=== PATIENT | female | born 1975 | race Caucasian/White ===

== ENCOUNTER 2019-10-14 10:54 | Outpatient (CLI) | payer OTHER, SELFPAY ==
--- NOTE | ~2019-10-14 | US_ITS ---
EXAMINATION: US pelvic complete w TV DATE: 10/14/2019 11:30 INDICATION: Menorrhagia. Comparison:Ultrasound dated 08/13/2015 TECHNIQUE: Multiple transabdominal and endovaginal sonographic images of the pelvis performed. FINDINGS: The uterus measures 9.3 x 4.3 x 5.2 cm. The endometrial complex measures 8 mm. There are na bothian cysts. The right ovary measures 3.1 x 2.2 x 1.9 cm and the left ovary measures 2.1 x 0.9 x 1.5 cm. There are small right ovarian cysts, largest measuring 1.5 cm. There are small follicles in each ovary. There is no free fluid in the pelvis. There are no abnormal masses seen on either side. IMPRESSION: 1. Small right ovarian cysts, largest measuring 1.5 cm. Reviewed, dictated and finalized at location A.
[2019-10-14 11:09] LABS: Basophils Absolute Auto 0.06 K/mm3 (0.00-0.10); Basophils Percent Auto 0.9 % (0.0-1.0); Eosinophils Absolute Auto 0.15 K/mm3 (0.02-0.50); Eosinophils Percent Auto 2.1 % (1.0-6.0); Hematocrit 42.1 % (35.0-49.0); Hemoglobin 14.1 g/dL (12.0-15.0); Immature Granulocyte Absolute 0.03 K/mm3 (0.00-0.00); Immature Granulocyte Percent A 0.4 % (0.0-0.0); Lymphocytes Absolute Auto 2.96 K/mm3 (1.10-4.50); Lymphocytes Percent Auto 42.3 % (18.0-42.0); Mean Corpuscular HGB Conc 33.5 g/dL (32.0-36.0); Mean Corpuscular Hemoglobin 28.6 pg (27.0-31.0); Mean Corpuscular Volume 85.4 fL (78.0-102.0); Mean Platelet Volume 10.5 fl (9.2-11.8); Monocytes Absolute Auto 0.76 K/mm3 (0.10-0.90); Monocytes Percent Auto 10.9 % (2.0-11.0); Neutrophils Percent Auto 43.4 % (50.0-70.0); Platelet Count Result 233 K/mm3 (150-420); Red Blood Count 4.93 M/mm3 (4.20-5.40); Red Cell Distribution Width 12.2 % (11.6-14.4)
[2019-10-14 11:34] LABS: Thyroid Stimulating Hormone 2.26 uIU/mL (0.36-3.74)
[2019-10-14 11:36] LABS: Beta HCG Quantitative < 1.00 mIU/mL (0-6)
[2019-10-17 12:58] LABS: Prolactin 18.4 ng/mL (***)
== END 2019-10-14 10:55 | disposition home or self-care (01) ==
PROVIDERS: PCP Nurse Practitioner Family; Visit Provider Nurse Practitioner
DX: N92.0 Excessive and frequent menstruation with regular cycle (principal)
CPT/HCPCS: 36415; 76830; 76856; 84146; 84439; 84443; 84702; 85025

== ENCOUNTER 2019-12-20 15:23 | Emergency (ER) | payer OTHER, SELFPAY ==
--- NOTE | ~2019-12-20 | XR_ITS ---
XR forearm RT 2V 12/20/2019 16:35 INDICATION: Right arm pain PROCEDURE: 2 views right forearm COMPARISON: No prior studies for comparison. FINDINGS: Fracture, dislocation or subluxation is not identified. The soft tissues appear within norm al limits. No foreign bodies are identified. IMPRESSION: 1: NO ACUTE BONE OR JOINT ABNORMALITY IDENTIFIED. Reviewed, dictated and finalized at location A.
[2019-12-20 15:32] VITALS: BP 141/86; PULSE 84; RESP 16; TEMP 37.6; O2SAT 98
--- NOTE | 2019-12-20 15:36 | ED.UPPEXIN ---
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 Related Data Home Medications Medication Instructions Recorded Confirmed doxycycline monohydrate 50 mg PO BID 12/20/19 12/20/19 Allergies Allergy/AdvReac Type Severity Reaction Status Date / Time No Known Allergies Allergy Verified 12/20/19 16:29 Review of Systems Review of Systems: All systems reviewed & are unremarkable except as noted in HPI and below Constitutional: Constitutional: Reports no additional constitutional complaints Eyes: Eyes: Reports as per HPI ENT: Reports system reviewed and no additional complaints, except as documented Cardiovascular: Cardiovascular: Reports no additional cardiovascular complaints Respiratory: Respiratory: Reports no additional respiratory complaints Gastrointestinal: Gastrointestinal: Reports no additional gastrointestinal complaints Genitourinary: Genitourinary: Reports no additional female genitourinary complaints Musculoskeletal: Comments: R forearm pain Integumentary/Breasts: Skin/Breast: Reports system reviewed and no additional complaints, except as docu Neurologic: Reports system reviewed and no additional complaints, except as documented Psychiatric: Psychiatric: Reports no additional psychiatric complaints Endocrine: Endocrine: Reports no additional endocrine complaints Hematologic/Lymphatic: Hematologic/Lymphatic: Reports no additional hematologic/lymphatic complaints Allergic/Immunologic: Allergic/Immunologic: Reports no additional allergic/immunologic complaints Exam Const: General: healthy appearing, no acute distress and alert Orientation/consciousness: patient oriented x3 HENMT: Head: normal to inspection Chest: Chest palpation & inspection: normal inspection of the chest Resp: Effort & Inspection: normal respiratory effort Auscultation: clear to auscultation bilaterally Cardio: Rate: regular rate Rhythm: regular rhythm Extrem: Other: R mid forearm TTP w/ mild ecchymosis Psych: Mental Status: mental status grossly normal Affect: normal affect Attitude: cooperative Course Course Emergency Course: X-rays negative. D/C home w/ OTC pain meds Vital Signs Vital signs: Vital Signs Temperature 99.7 F H 12/20/19 15:32 Pulse Rate 84 12/20/19 15:32 Respiratory Rate 16 12/20/19 15:32 Blood Pressure 141/86 H 12/20/19 15:32 Pulse Oximetry 98 12/20/19 15:32 Temperature 99.7 F H 12/20/19 15:32 Pulse Rate 84 12/20/19 15:32 Respiratory Rate 16 12/20/19 15:32 Blood Pressure 141/86 H 12/20/19 15:32 Pulse Oximetry 98 12/20/19 15:32 MDM - Extremity Injury (Upper) Medical Records Attestation: I reviewed the patient's medical records. Critical Care Time Critical Care Time Critical Care Time: No Discharge Plan Discharge Clinical Impression: Contusion of forearm, right Patient Disposition: Home, Self-Care Condition: Improved Instructions: Antibiotic Form, Contusion in Adults (ED) Prescriptions: No Action doxycycline monohydrate 50 mg capsule 50 mg PO BID RF: 0 Follow-up/Referrals: Geetha,Destiny Brady REHAB MANAGER-BC [Primary Care Provider] - Time of Disposition: 16:45
== END 2019-12-20 17:00 | disposition home or self-care (01) ==
PROVIDERS: Emergency Provider Family Medicine; PCP Nurse Practitioner Family
DX: S50.11XA Contusion of right forearm, initial encounter (principal); W22.8XXA Striking against or struck by other objects, initial encounter
CPT/HCPCS: 73090; 99283

== ENCOUNTER 2020-03-05 10:46 | Outpatient (CLI) | payer OTHER, SELFPAY ==
--- NOTE | ~2020-03-05 | MMUS_ITS ---
EXAMINATION: MM diagnostic masha BI w marleny, US breast LT limited HISTORY: Palpable left breast abnormality TECHNIQUE: Additional 3-D tomosynthesis images of the breasts were performed and synthetic 2-D images were generated. CAD analysis was submitted and interpreted. High resolution Limited left breast ultr asound was performed. COMPARISON: Comparison to multiple prior studies sequentially, with oldest reviewed study dated 3/. BREAST PARENCHYMAL COMPOSITION: Breast composed of scattered areas of fibroglandular density. FINDINGS: MAMMOGRAPHIC FINDINGS: There are no suspicious masses, calcifications or architectural distortion in either breast to sugges t malignancy. ULTRASOUND: There are mildly prominent ducts near the areola. At 6:00 near the nipple there is a 3 mm cyst. No bazzi spicious masses to suggest malignancy. IMPRESSION: 1. No evidence for malignancy in the left breast. 2. Routine yearly screening mammogram and regular clinical breast examination are recommended. BI-RADS Category 2: Benign finding(s). Reviewed, dictated and finalized at location A. IMPRESSION: 1. No evidence for malignancy in the left breast. 2. Routine yearly screening mammogram and regular clinical breast examination a re recommended. BI-RADS Category 2: Benign finding(s).
== END 2020-03-05 10:47 | disposition home or self-care (01) ==
PROVIDERS: PCP Nurse Practitioner Family; Visit Provider Nurse Practitioner Family
DX: R92.8 Other abnormal and inconclusive findings on diagnostic imaging of breast (principal)
CPT/HCPCS: 76642; 77062; 77066; G0279

== ENCOUNTER 2022-07-05 12:23 | Emergency (ER) | payer OTHER, SELFPAY ==
--- NOTE | 2022-07-05 12:31 | ED.URI ---
HPI - URI/Sore Throat General Chief Complaint: Upper Respiratory Infection Stated Complaint: wants covid test Time Seen by Provider: 07/05/22 12:32 Source: patient, RN notes reviewed and old records reviewed Mode of arrival: ambulatory Limitations: no limitations History of Present Illness HPI Narrative: 47 old female presents to express care with complaints of runny nose and sinus congestion for the past 3 days. Patient reports that there had been COVID exposure at work but she was not directly around person. Patient reports no fevers, chills or sweats,denies any body aches or sore throat. Patient states she just has cold symptoms and has been taking some Mucinex DM for her symptoms. Patient reports that she has been COVID vaccinated and has had flu shot. Work place is concerned with her symptoms and would like to have COVID test done. MD elicited complaint: cough, rhinorrhea and nasal congestion Onset (ago): day(s) (3 days) Description of mucous: clear Treatments prior to arrival: other (Mucinex DM) Related Data Home Medications Medication Instructions Recorded Confirmed clonazepam 0.5 mg tablet 0.5 mg PO DAILY PRN anxiety 06/30/22 07/05/22 norethindrone (contraceptive) 0.35 0.35 mg PO DAILY 06/30/22 07/05/22 mg tablet phentermine 37.5 mg tablet 37.5 mg PO DAILY 06/30/22 07/05/22 Allergies Allergy/AdvReac Type Severity Reaction Status Date / Time No Known Allergies Allergy Verified 07/05/22 12:40 Review of Systems Review of Systems: CONSTITUTIONAL: Denies malaise, chills, sweats, or fever. EYES: Denies visual changes, redness, or discharge. ENT: Reports rhinorrhea, congestion, sinus pain,no otalgia, denies sore throat. CARDIOVASCULAR: Denies chest pain, palpitations, or edema. RESPIRATORY: Reports occasional cough.? Denies dyspnea. GASTROINTESTINAL: Denies abdominal pain, nausea, vomiting, diarrhea SKIN: Denies rash or itching. MUSCULOSKELETAL: Denies myalgia. NEUROLOGIC: Denies headache. All systems reviewed & are unremarkable except as noted in HPI and below PMFSH Past Medical History Medical History (Updated 07/06/22 @ 08:44 by Latosha Carmona NP) Anxiety and depression Surgical History Surgical History History of tubal ligation Family History Family History Father Depression Alcoholism Mother Breast cancer Alcoholism Sibling Hypertension Depression Grandparent Alcoholism Ovarian cancer Social History Social History Smoking status: Current every day smoker Tobacco type: e-cigarettes/vaping Alcohol intake: current Alcohol use details: maybe every 6 months Substance use: never Substance use type: does not use Lack of Transportation: No Lack of Food: Never True Current Housing: I Have Housing Concerned About Future Housing: No Difficulty Paying Gas/Electric Bills: No Difficulty Paying for Meds: No Currently Unemployed: No Education: Trade/Vocational Certificate Difficulty w/ Childcare or Family Care: No Living arrangements: with family Occupation/Education: occupation Gender identity (if verbalized by the patient): Female Sexual Orientation (if Verbalized by the Patient): Straight or Heterosexual Spiritual care concerns: No Agree to blood products: Yes Comments At time of signature, agree with nursing past medical, surgical, social and family history. There is no relevant family history pertinent to the presenting complaint Exam Narrative: GENERAL: Well-appearing, well-nourished, and in no acute distress. HEAD: Normocephalic EYES: PERRLA, conjunctivae clear ENT: Nares clear, turbinates edematous and erythematous, clear discharge. Mucous membranes moist. TM pearly covarrubias with dull light reflex bilaterally; no tragal ten
[2022-07-05 12:32] VITALS: BP 114/82; PULSE 93; RESP 16; TEMP 36.6; O2SAT 100
== END 2022-07-05 13:10 | disposition home or self-care (01) ==
PROVIDERS: Emergency Provider Registered Nurse; PCP Family Medicine
DX: J06.9 Acute upper respiratory infection, unspecified (principal); Z20.822 Contact with and (suspected) exposure to COVID-19; F17.290 Nicotine dependence, other tobacco product, uncomplicated; F41.9 Anxiety disorder, unspecified
CPT/HCPCS: 87426; 99213; C9803; G0463

== ENCOUNTER 2022-07-24 12:27 | Outpatient (CLI) | payer OTHER, SELFPAY ==
--- NOTE | ~2022-07-24 | US_ITS ---
EXAMINATION: US arterial ankle brachial ind DATE: 07/24/2022 14:28 INDICATION: Peripheral vascular disease TECHNIQUE: Segmental pressures and plethysmographic and Doppler waveforms of the brachial and lower e xtremity arteries were obtained. COMPARISON: None. FINDINGS: Right and left brachial artery pressures of 91 mm Hg and 91 mm Hg, respectively, are concordant (norm al difference <= 30 mmHg). The right ankle-brachial index (ILEANA) is 1.30 (normal >= 0.9-1.0). The right great toe-brachial index (TBI) is 0.42 (normal >= 0.65). Arterial Doppler waveforms are biphasic with brisk systolic upstrokes at both right posterior tibial and dorsalis pedis arteries. The left ILEANA is 1.43. The left TBI is 0.63. Arterial Doppler waveforms are biphasic with brisk systol ic upstrokes at both left posterior tibial and dorsalis pedis arteries. IMPRESSION: 1. Mild arterial occlusive disease to bilateral lower limbs with normal ABIs but mild to moderately d ecreased right and minimally decreased left TBIs. Reviewed, dictated and finalized at location A. RANS' COORDINATOR IMPRESSION: 1. Mild arterial occlusive disease to bilateral lower limbs with normal ABIs bu t mild to moderately decreased right and minimally decreased left TBIs.
--- NOTE | ~2022-07-24 | US_ITS ---
EXAMINATION: US_VDOPREFBI_US DATE: 07/24/2022 14:28 INDICATION: Lower limb pain. Reflux. TECHNIQUE: Grayscale ultrasound images without and with compression and Doppler ultrasound images of the bilateral lower extremity veins were obtained. COMPARISON: None. FINDINGS: The visualized portions of right common femoral vein, profunda (deep) femoral vein, femoral vein, pop liteal vein, peroneal veins, posterior tibial veins, and greater saphenous vein outflow are patent. R ight greater saphenous vein measures 5 mm in the upper thigh and 5 mm in the lower thigh and 2 mm in the calf. There is reflux in right greater saphenous vein for 1.0 seconds in the lower thigh. Right s mall saphenous vein measures 4 mm in the upper calf and 4 mm in the lower calf. There is no significa nt reflux in the small saphenous vein. The visualized portions of left common femoral vein, profunda femoral vein, femoral vein, popliteal v ein, peroneal veins, posterior tibial veins, and greater saphenous vein outflow are patent. Lesser sa phenous vein measures 6 mm in the upper thigh, 4 mm in the lower thigh, and 3 mm in the calf. There i s reflux in left greater saphenous vein for 1.3 seconds in the lower thigh. Left small saphenous vein measures 4 mm in the upper calf and 3 mm in the lower calf. There is reflux in left small saphenous vein for 4.2 seconds. IMPRESSION: 1. No deep venous thrombosis. 2. Reflux in the bilateral greater saphenous veins and left small saphenous vein. Reviewed, dictated and finalized at location A. NING DEVELOPMENT SPECIALIST IMPRESSION: 1. No deep venous thrombosis. 2. Reflux in the bilateral greater saphenous veins and left small saphenous vei n.
== END 2022-07-24 12:28 | disposition home or self-care (01) ==
LOC: ANHIMG 12:32
PROVIDERS: PCP Family Medicine; Visit Provider Orthopaedic Surgery
DX: I87.2 Venous insufficiency (chronic) (peripheral) (principal); I73.9 Peripheral vascular disease, unspecified
CPT/HCPCS: 93922; 93970

== ENCOUNTER 2022-11-08 08:19 | Outpatient (CLI) | payer BC, SELFPAY ==
[2022-11-08 17:38] LABS: Basophils Absolute Auto 0.1 K/mm3 (0.0-0.1); Basophils Percent Auto 0.9 % (0.2-1.2); Eosinophils Absolute Auto 0.2 K/mm3 (0-0.3); Eosinophils Percent Auto 2.6 % (0-4.4); Hemoglobin 14.2 g/dL (12.0-15.0); Immature Granulocyte Absolute 0.01 K/mm3 (0.00-0.031); Immature Granulocyte Percent A 0.2 % (0-0.5); Lymphocytes Absolute Auto 1.84 K/mm3 (0.9-3.2); Lymphocytes Percent Auto 32.5 % (18.3-44.2); Mean Corpuscular Hemoglobin 29.2 pg (26-34); Mean Corpuscular Volume 88.3 fl (80-100); Mean Platelet Volume 11.3 fl (7.4-10.4); Monocytes Absolute Auto 0.6 K/mm3 (0.1-0.6); Monocytes Percent Auto 11.3 % (2.6-8.5); Neutrophils Percent Auto 52.5 % (45.5-73.1); Platelet Count Result 204 k/mm3 (150-375); Red Blood Count 4.87 M/mm3 (4.2-5.4); Red Cell Distribution Width 12.6 % (11.5-14.5); White Blood Count 5.7 K/mm3 (4.5-10.0)
[2022-11-08 20:44] LABS: LDL Cholesterol Direct 77 mg/dL
[2022-11-08 21:25] LABS: Anion Gap 8 mmol/L (8-16); Blood Urea Nitrogen 20 mg/dL (7-17); Carbon Dioxide 26 mmol/L (22-30); Chloride 105 mmol/L (98-107); Cholesterol 161 mg/dL (0-200); Estimated Glomerular Filt Rate > 60; Glucose 83 mg/dL (65-110); HDL Direct 60 mg/dL; Potassium 4.5 mmol/L (3.4-5.0); Sodium 139 mmol/L (137-145); Triglycerides 43 mg/dL (<150)
[2022-11-08 21:32] LABS: Vitamin D 25 Hydroxy 34.7 ng/mL
[2022-11-12 05:21] LABS: FSH 47.7 mIU/mL (***); Prolactin 7.2 ng/mL (***)
== END 2022-11-08 08:20 | disposition home or self-care (01) ==
LOC: ANHGOSHLAB 08:27
PROVIDERS: PCP Family Medicine; Visit Provider Nurse Practitioner Family
DX: N92.0 Excessive and frequent menstruation with regular cycle (principal); I73.9 Peripheral vascular disease, unspecified; G57.72 Causalgia of left lower limb
CPT/HCPCS: 36415; 80048; 80061; 82306; 83001; 84146; 84443; 85025

== ENCOUNTER 2023-02-05 14:21 | Outpatient (CLI) | payer BC, SELFPAY ==
--- NOTE | ~2023-02-05 | XR_ITS ---
EXAMINATION: XR foot RT min 3V DATE: 02/05/2023 14:26 INDICATION: Dorsal right foot pain. TECHNIQUE: 4 views of right foot were obtained. COMPARISON: None. FINDINGS: There is mild hallux valgus. No fracture. There is mild osteoarthritis of first metatarsoph alangeal joint. IMPRESSION: 1. Mild osteoarthritis of first metatarsophalangeal joint. 2. Mild hallux valgus. Reviewed, dictated and finalized at location E.
== END 2023-02-05 14:22 ==
LOC: GOSHIMG 14:23
PROVIDERS: PCP Family Medicine; Visit Provider Nurse Practitioner Family
DX: M19.071 Primary osteoarthritis, right ankle and foot (principal); M20.11 Hallux valgus (acquired), right foot
CPT/HCPCS: 73630

== ENCOUNTER 2023-02-15 12:46 | Outpatient (CLI) | payer BC, SELFPAY ==
--- NOTE | ~2023-02-15 | US_ITS ---
Pelvic ultrasound. Clinical History: Menorrhagia Technique: Realtime transabdominal and transvaginal scanning of the pelvis was performed. Color flow Doppler and Doppler spectral analysis were performed. Findings: The uterus is anteverted, and measures 7.1 x 4.0 x 4.1. The endometrial stripe has a thick ness of 9 mm. No focal mass is identified. The right ovary is not visualized. No significant right ovarian or adnexal mass is seen. The left ovary measures 3.2 x 2.4 x 2.5 cm. Left ovarian cyst measures 2.7 cm in diameter. There is no evidence of free fluid in the cul de sac. Impression: 2.7 cm left ovarian cyst. Right ovary not visualized. Reviewed, dictated and finalized at [facility]. Impression: 2.7 cm left ovarian cyst. Right ovary not visualized.
== END 2023-02-15 12:47 ==
LOC: GOSHIMG 12:48
PROVIDERS: PCP Family Medicine; Visit Provider Nurse Practitioner
DX: N92.0 Excessive and frequent menstruation with regular cycle (principal); N83.202 Unspecified ovarian cyst, left side
CPT/HCPCS: 76830; 76856

== ENCOUNTER 2023-02-15 13:09 | Outpatient (CLI) | payer BC, SELFPAY ==
[2023-02-15 18:42] LABS: Hematocrit 42.9 % (37.0-47.0); Mean Corpuscular HGB Conc 32.6 g/dl (32-36); Mean Corpuscular Hemoglobin 29.3 pg (26-34); Mean Corpuscular Volume 89.7 fl (80-100); Mean Platelet Volume 11.2 fl (7.4-10.4); Platelet Count Result 244 k/mm3 (150-375); Red Blood Count 4.78 M/mm3 (4.2-5.4); Red Cell Distribution Width 12.1 % (11.5-14.5); White Blood Count 6.2 K/mm3 (4.5-10.0)
[2023-02-15 19:23] LABS: Free T4 Free Thyroxine 1.11 ng/mL (0.78-2.19)
== END 2023-02-15 13:10 | disposition home or self-care (01) ==
LOC: ANHGOSHLAB 13:11
PROVIDERS: PCP Family Medicine; Visit Provider Nurse Practitioner
DX: N92.0 Excessive and frequent menstruation with regular cycle (principal)
CPT/HCPCS: 36415; 82607; 83036; 84439; 84443; 85027

== ENCOUNTER 2023-03-12 01:10 | Day surgery (SDC) | payer BC, MEDICAID, SELFPAY ==
--- NOTE | 2023-03-05 15:24 | PC.NURSE ---
Report to the Outpatient Waiting Room, entrance under the green pavilion located off [facility], at time _0915_ on date __03/12/23_. Planned Procedure Time: __1115 . Time changes happen often and if your time is changed the preop area will call you the afternoon before. - You and your visitor will be asked to self-screen and do not enter if you have any COVID symptoms. - A mask is optional within the hospital at this time. Patients may have clear liquids (water, carbonated beverages, clear teas, apple juice) until 3 hours prior to surgery with a maximum of 20 ounces. - No food from midnight until time of surgery - Infants may have breast milk until 4 hours before surgery, formula 6 hours prior to surgery. - Children will be allowed to drink immediately following surgery. If applicable, please bring a bottle or sippy cup to assist with drinking. Juice, water, soda, and popsicles are readily available. For infants on formula, please bring formula the day of surgery. Pacifiers are allowed. Take the following medications with a SIP of water the morning of surgery: CLONAZEPAM DO NOT STOP ANY OF YOUR OTHER PRESCRIPTION MEDICATIONS PRIOR TO SURGERY ?EXCEPT THE FOLLOWING Medications to discontinue per physician NONE Date to take last dose Please no make-up, nail nepali, hairspray, perfume, deodorant, or body powder the day of surgery. No jewelry (including any body piercings) or valuables the day of surgery, leave them at home. Please take a shower or bath the night before, or the morning of, surgery with an antibacterial soap. Wear comfortable, loose fitting clothing. Children are encouraged to wear pajamas. - Jewelry must be removed prior to entering the operating room. Rings and piercings that are not removed may be cut off. - The hospital will not accept responsibility for valuables. - Please leave all valuables, including medications, at home the day of surgery. If you are going home after surgery, a licensed water taxi driver must drive you home. - NO public transportation without another adult if you receive anesthesia. - We recommend that an adult stay with you for 24 hours following discharge. - We also recommend that you do not drive, make important decision, drink alcoholic beverages, or take any drugs that were not prescribed by your health care provider for at least 24 hours after your discharge time. For Pediatric surgeries, we recommend two adults accompany the child home. Follow any additional instructions given to you from your surgeon. If you or anyone in your household have experienced Covid symptoms in the past week, please notify your surgeon or the nurse liaison at the phone number below for possible testing. Telephone instructions given to KAMERONFF__and asked if any additional questions and then verbalized understanding. Patient advised to call surgeon office or pre surgery nurse liaison [phone] if any additional questions.
--- NOTE | 2023-03-12 07:17 | WPDANESEPPF ---
Anes - Initial Pre Proc Eval Procedure: Operation Date: 03/12/23 11:15 Proposed Procedures p Hysteroscopy Dilation and Curettage - Hermelinda Reveles MD Date/Time: 03/12/23 07:17 Surgeon: Hermelinda Reveles MD Pre Op Diagnosis: menorrhagia Patient Data Age: 48 Gender: F Height: Weight: Allergies Allergy/AdvReac Type Severity Reaction Status Date / Time No Known Allergies Allergy Verified 03/12/23 10:00 Home Medications Medication Instructions Recorded Confirmed Type clonazepam 0.5 mg tablet 0.5 mg PO DAILY PRN anxiety 06/30/22 03/12/23 History Patient hx anesthesia problems: none Family hx anesthesia problems: none Results Review: All pre-operative results and documents have been reviewed as part of the pre-operative evaluation. [facility] [place] Past Medical History Medical History (Updated 03/12/23 @ 10:04 by Oliverio George DO) Anxiety and depression (normal spontaneous vaginal delivery) X3 Venous stasis dermatitis of left lower extremity Surgical History Surgical History (Updated 03/12/23 @ 07:44 by Hermelinda Reveles MD) History of hysteroscopy 2020 with polyps History of tubal ligation Family History Family History Father Depression Alcoholism Mother Breast cancer Alcoholism Sibling Hypertension Depression Grandparent Alcoholism Ovarian cancer Social History Social History Smoking packs per day: 0.45 Smoking cigarettes per day: 9.0 Years smoked: 30 Smoking pack-years: 13.50 Smoking status: Current every day smoker Tobacco type: cigarettes and e-cigarettes/vaping Additional smoking assessment comments: VAPING FOR 3 YEARS, AFTER QUITTING CIGARETTES Alcohol intake: current Alcohol use details: RARELY Substance use: never Substance use type: does not use Lack of Transportation: No Lack of Food: Never True Current Housing: I Have Housing Concerned About Future Housing: No Difficulty Paying Gas/Electric Bills: No Difficulty Paying for Meds: No Currently Unemployed: No Education: Trade/Vocational Certificate Difficulty w/ Childcare or Family Care: No Living arrangements: with family Occupation/Education: occupation Gender identity (if verbalized by the patient): Female Sexual Orientation (if Verbalized by the Patient): Straight or Heterosexual Spiritual care concerns: No Agree to blood products: Yes Anes - Eval Final PreProcedure Day of Procedure 03/12/23 07:17 Patient weight: normal Heart: regular rate and rhythm Lungs: clear to auscultation and normal air movement Airway: Mallampati scale class II Neurological: alert and oriented Last oral intake: >/= 8 hours ASA classification: II Emergent: no Anesthetic plan: proceed Anesthesia type and monitoring: general GIVS and standard monitoring Results Review: All pre-operative results and documents have been reviewed as part of the pre-operative evaluation. Informed Consent: The patient's anesthetic plan and its attendant risks and benefits were discussed with the patient/family/POA. Questions were solicited and answers provided to the satisfaction of the patient/family/POA.
--- NOTE | 2023-03-12 07:41 | WPDHPUPDATE1 ---
History and Physical Update Update Date/Time: 03/12/23 07:41 History and Physical has been reviewed, including an updated exam of the patient. There are NO changes in the patient's condition. Risks, benefits, and alternatives have been discussed and questions answered. Patient agrees to proceed with procedure.
--- NOTE | 2023-03-12 07:41 | PM.HPGS ---
History of Present Illness History of Present Illness Consent: Risks, benefits, and alternatives have been discussed and questions answered. Patient agrees to proceed with procedure. Chief complaint: menorrhagia Narrative: Nyla Hay is a 48 year old female with irregular heavy cycles. Pelvic ultrasound was normal. It was recommended to further undergo D&C hysteroscopy for evaluation. Risks of infection, bleeding, perforation, and possible pathology are reviewed. Patient voices understanding and agrees to proceed. Review of Systems Review of Systems: not repeated day of surgery; patient states no changes in status PMFSH Past Medical History Medical History (Updated 03/12/23 @ 07:44 by Hermelinda Reveles MD) Anxiety and depression (normal spontaneous vaginal delivery) X3 Peripheral arterial disease Patient saw vascular surgeon and stated this was not present Venous stasis dermatitis of left lower extremity Surgical History Surgical History (Updated 03/12/23 @ 07:44 by Hermelinda Reveles MD) History of hysteroscopy 2020 with polyps History of tubal ligation Family History Family History Father Depression Alcoholism Mother Breast cancer Alcoholism Sibling Hypertension Depression Grandparent Alcoholism Ovarian cancer Social History Social History Smoking packs per day: 0.45 Smoking cigarettes per day: 9.0 Years smoked: 30 Smoking pack-years: 13.50 Smoking status: Current every day smoker Tobacco type: cigarettes and e-cigarettes/vaping Additional smoking assessment comments: VAPING FOR 3 YEARS, AFTER QUITTING CIGARETTES Alcohol intake: current Alcohol use details: RARELY Substance use: never Substance use type: does not use Lack of Transportation: No Lack of Food: Never True Current Housing: I Have Housing Concerned About Future Housing: No Difficulty Paying Gas/Electric Bills: No Difficulty Paying for Meds: No Currently Unemployed: No Education: Trade/Vocational Certificate Difficulty w/ Childcare or Family Care: No Living arrangements: with family Occupation/Education: occupation Gender identity (if verbalized by the patient): Female Sexual Orientation (if Verbalized by the Patient): Straight or Heterosexual Spiritual care concerns: No Agree to blood products: Yes Meds Home Medications and Allergies Home Medications Medication Instructions Recorded Confirmed Type clonazepam 0.5 mg tablet 0.5 mg PO DAILY PRN anxiety 06/30/22 07/11/22 History Allergies Allergy/AdvReac Type Severity Reaction Status Date / Time No Known Allergies Allergy Verified 03/05/23 15:14 Exam Const: General: healthy appearing and alert Orientation/consciousness: patient oriented x3 Resp: Effort & Inspection: normal respiratory effort GI: GI Palp: Yes Soft to palpation, No Tenderness to palpation present (GI) and No Palpable mass present : External Female Exam: normal external appearance Speculum Exam - Vagina: normal appearance of the vagina and normal vaginal discharge Speculum Exam - Cervix: normal appearance of the cervix Bimanual exam- vagina & uterus: uterine size normal and consistency normal Bimanual Exam- Adnexa, other: normal adnexae and No adnexal tenderness Neuro: General: patient oriented x3 Assessment and Plan Assessment and plan (1) Menorrhagia: Code(s): N92.0 - Excessive and frequent menstruation with regular cycle Status: Acute Assessment and Plan: Plan to proceed with D&C hysteroscopy
[2023-03-12] MEDS: LACTATED RINGERS 1,000 ML 30 ML IV CONT (09:45)
[2023-03-12 09:53] VITALS: BMI 28.3
[2023-03-12] MEDS: ACETAMINOPHEN 500 MG TABLET 1000 MG PO (09:53)
[2023-03-12 09:55] VITALS: BP 103/80; PULSE 90; RESP 16; TEMP 36.4; O2SAT 100
[2023-03-12 11:39] VITALS: BP 101/57; PULSE 76; RESP 16; O2SAT 100
--- NOTE | 2023-03-12 11:41 | W.PM.PROC2 ---
Procedure Note - Detailed Date of Procedure 03/12/23 Pre-op Diagnosis menorrhagia Post-op Diagnosis Same Procedure Performed D&C hysteroscopy with resection of polyp Surgeon Hermelinda Reveles MD Anesthesia MAC Findings Uterus sounds to 7cm with a polyp arising from the right sidewall. Remainder of the endometrium appears atrophic. Description of Procedure The patient is taken to the operating room and placed under anesthesia in the dorsal lithotomy position. She was prepped and draped in usual sterile fashion. [place]ford speculum was placed in the vagina and the cervix grasped on the anterior lip with a tenaculum. The uterus is sounded to 7cm. The diagnostic hysteroscope was placed and with the above-stated findings the Aveeta resection device is opened and placed. The polyp was removed in its entirety under direct visualization. Instruments are removed from the uterus and the sharp 00 curette is used to curette the endometrium until a good uterine cry was noted in all areas. Minimal material was obtained consistent with the atrophic appearance. Instruments are removed. Sponge, needle, and instrument counts are correct per the OR staff. Patient was awakened from anesthesia and taken to recovery in stable condition. Estimated Blood Loss 5 Drains No Packing No Pathology Yes (Endometrial curettings and shavings) Complications No immediate complications Condition Stable Disposition PACU
[2023-03-12 12:00] VITALS: BP 105/70; PULSE 94; RESP 16; O2SAT 98
[2023-03-12 12:30] VITALS: BP 107/67; PULSE 64; RESP 16
== END 2023-03-12 13:00 | disposition home or self-care (01) ==
PROVIDERS: PCP Family Medicine; Visit Provider Obstetrics & Gynecology Gynecology
PROC: 0U5B8ZZ Destruction of Endometrium, Via Natural or Artificial Opening Endoscopic (ICD-10-PCS; CPT 58563; principal; 2023-03-12 11:15)
DX: N92.0 Excessive and frequent menstruation with regular cycle (principal); N84.0 Polyp of corpus uteri; F41.8 Other specified anxiety disorders; F17.290 Nicotine dependence, other tobacco product, uncomplicated
CPT/HCPCS: 58558; 88305; A9270; J2250; J3010; J7120

== ENCOUNTER 2023-04-06 15:30 | Outpatient (CLI) | payer BC, MEDICAID, SELFPAY ==
[2023-04-10 02:01] LABS: CA-125 8 U/mL (<35)
[2023-05-02 13:44] LABS: Result NEGATIVE
== END 2023-04-06 15:31 | disposition home or self-care (01) ==
LOC: ANHGOSHLAB 15:31
PROVIDERS: PCP Family Medicine; Visit Provider Nurse Practitioner Family
DX: R53.83 Other fatigue (principal); Z84.81 Family history of carrier of genetic disease; M25.50 Pain in unspecified joint; Z80.41 Family history of malignant neoplasm of ovary
CPT/HCPCS: 36415; 81162; 86038; 86304

== ENCOUNTER 2024-02-14 07:03 | Outpatient (CLI) | payer OTHER, SELFPAY ==
--- NOTE | ~2024-02-14 | MR_ITS ---
EXAMINATION: MR foot LT wo con DATE: 02/14/2024 08:53 INDICATION: Pain and paresthesias at the left foot TECHNIQUE: Magnetic resonance imaging (MRI) of the left fore/mid foot was performed without intraveno us contrast. Sequences included sagittal T1-weighted FSE, sagittal fluid sensitive FSE STIR, coronal PD-weighted FS FSE, coronal T1-weighted FSE, axial PD-weighted FS FSE, and axial PD-weighted FSE. COMPARISON: Left foot radiographs dated 07/11/2022 FINDINGS: Bone alignment is normal. Mild osteoarthritis at the first metatarsophalangeal joint with mild subart icular cystlike and edema-like signal changes at the head of the first metatarsal predominantly along its articulation with the sesamoids. Otherwise normal bone marrow signal with no reactive edema, fra cture or pathologic marrow replacing process. Remaining joint spaces are normal. No joint effusions, Vanessa synovitis or other abnormal fluid collections. The visualized portions of the flexor and extenso r tendons and intrinsic musculature of the foot are normal. The Lisfranc ligament complex as well as the collateral ligament complex at the metatarsophalangeal and interphalangeal joints are normal. IMPRESSION: 1. 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 Otherwise unremarkable MRI of the left mid and forefoot. Reviewed, dictated and finalized at location A. IMPRESSION: 1. 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 Otherwise u nremarkable MRI of the left mid and forefoot.
== END 2024-02-14 07:04 | disposition home or self-care (01) ==
PROVIDERS: PCP Family Medicine
DX: M79.672 Pain in left foot (principal); M19.072 Primary osteoarthritis, left ankle and foot
CPT/HCPCS: 73718

== ENCOUNTER 2024-07-14 11:47 | Outpatient (CLI) | payer OTHER, SELFPAY ==
--- NOTE | ~2024-07-14 | XR_ITS ---
EXAM: XR elbow RT min 3V DATE: 07/14/2024 12:07 HISTORY: W18.00XA - Striking against unspecified object with subse... . COMPARISON: X-ray forearm 12/20/2019. FINDINGS: Normal mineralization. No fracture or dislocation. No lytic or blastic lesion. Joint space s are maintained. No erosion or periosteal change. Soft tissues within normal limits. IMPRESSION: No acute osseous finding in the right elbow. Reviewed, dictated and finalized at location K. PEDIATRIC ICU
--- NOTE | ~2024-07-14 | XR_ITS ---
HISTORY: W18.00XA - Striking against unspecified object with subse... COMPARISON: None TECHNIQUE: 3 views of the right knee were performed FINDINGS: No acute or subacute fracture. Medial tibiofemoral joint space narrowing is identified. No suprapatellar joint effusion is identified. The infrapatellar joint space is clear. IMPRESSION: Trace degenerative disease, without fracture or dislocation. Reviewed, dictated and finalized at location A. [employer]
== END 2024-07-14 11:48 | disposition home or self-care (01) ==
LOC: GOSHIMG 11:49
PROVIDERS: PCP Nurse Practitioner Family; Visit Provider Nurse Practitioner Family
DX: M25.561 Pain in right knee (principal); M25.521 Pain in right elbow; W18.00XA Striking against unspecified object with subsequent fall, initial encounter
CPT/HCPCS: 73080; 73562

== ENCOUNTER 2024-10-24 13:28 | Outpatient (CLI) | payer OTHER, MEDICAID, SELFPAY | END 2024-10-24 13:29 | disposition home or self-care (01) | LOC: GOSHIMG 13:30 | PROVIDERS: PCP Nurse Practitioner Family; Visit Provider Nurse Practitioner Family | DX: M25.562 Pain in left knee (principal) | CPT/HCPCS: 73562 ==

== ENCOUNTER 2024-12-04 12:30 | Outpatient (RCR) | payer OTHER, SELFPAY ==
--- NOTE | 2024-11-10 14:01 | OPREHPOC ---
Outpatient Therapy Plan of Care This is a Multidisciplinary Plan of Care that may contain components documented by all disciplines (PT, OT, and ST.) PT Problem 1 PT Problem #1 Knowledge Deficit PT Goal 1 Goal / Goal Update 1. Patient to demonstrate independence with HEP for improved self-reliance of symptom management. 2. Patient to decrease subjective reports of pain to <2/10 for improved ADL tolerance. Target Visit 8 PT Problem 2 PT Problem #2 Impaired Range of Motion PT Goal 1 Goal / Goal Update 1. Patient will demonstrate an increase in hamstring flexibility, improving passive knee extension in the 90/90 position from to within -20 ? of full extension to allow for improved sitting posture and reduced strain during gait. Target Visit 8 PT Problem 3 PT Problem #3 Impaired Strength PT Goal 1 Goal / Goal Update 1. Patient to demonstrate L knee strength >= 5/5 for improved functional stability required for ADLs. Target Visit 8 PT Problem 4 PT Problem #4 Impaired Functional Mobility PT Goal 1 Goal / Goal Update 1. Patient to improve gait mechanics and stair negotiation to no noted deficit and reciprocal pattern for improved community navigation. 2. Patient to improve distance ambulated during 2 MWT from to 500 ft to demonstrate an improvement in gait speed. Target Visit 8
--- NOTE | 2024-11-10 14:01 | PTOPEVAL1 ---
Assessment and note entered by Sidney Gordon PT Evaluation Information Assessment Status Evaluation Diagnosis L knee pain ICD-10 Condition Codes (PT) Pain in left knee M25.562,Abnormalities of gait and mobility R26.9 Other ICD-10 Condition Codes ( M25.66 PT) Subjective Information Pt reports L knee pain began over a month ago and gradually has gotten worse. Pt reports difficulty and unsteadiness with walking and stairs. Pt is a [employer] employee and has to be able to walk, stand and sit for prolonged periods of time. Pt was diagnosed with CRPS a few weeks ago and notes increase tingling in her foot and is currently taking gabapentin. Reported Pain Level Pain Score 2: Self Report Assessment PT Clinical Summary Patient presents to physical therapy with a primary issue of L pain that has progressed in the last month. X rays display no significant findings. Pt was recently diagnosed with CRPS. Patient demonstrates LLE weakness, pain, decreased mobility, gait deficit, and decreased flexibility that limit their ability to perform activities of daily living and functional movements. Patient will benefit from skilled physical therapy to address the above listed deficits and return to prior level of function. Home exercise program instructed and written handout provided, exercises tolerated well with no adverse effects to note post-session. Patient was educated on importance of adherence to home exercise program. Patient was also educated on anatomy, prognosis, home modalities, and plan of care. Plan of Care Interventions Gait Training,Hot Pack/Cold Pack,Manual Therapy, Neuro Re-education,Therapeutic Activities, Therapeutic Exercise,Self-Care/Home Management, Other PT Services Indicated Yes Treatment Frequency and 2x 8 visits Duration These treatments will address the objective and functional deficits as defined above. The patient will be advanced safely and appropriately in order for the patient to progress towards his/her prior level of function. Additional exercises will be introduced and as well as a comprehensive home exercise program upon discharge, if needed, ?to ensure carryover of functional gains achieved in the clinic. This treatment plan has been reviewed and agreement upon by the patient.
--- NOTE | 2024-11-18 15:11 | PCPTNOTE ---
Patient called to cancel due to having another commitment.
--- NOTE | 2024-12-04 13:21 | PTOPDC ---
Assessment and note entered by Sidney Gordon PT Evaluation Information Assessment Status Discharge Diagnosis L knee pain ICD-10 Condition Codes (PT) Pain in left knee M25.562,Abnormalities of gait and mobility R26.9 Other ICD-10 Condition Codes ( M25.66 PT) Subjective Information Pt reports she feels about 50% better. She notes she feels like she is able to do more things such as go down the stairs, walk longer and does not feel like she has to change positions as frequently to get comfortable. Pt notes continued difficulty with going upstairs, squatting and any sudden movements. Pt states those movements cause a sharp burning pain and leads to feeling unstable . Pt states she would feel comfortable trying to manage her symptoms on her own and continue home exercise program. Reported Pain Level Pain Score 0: Self Report Pain Score 0: Self Report Assessment PT Clinical Summary Patient's L knee has improved overall as evidenced by advancements in symptoms, mobility, strength, and overall functional use of the extremity. Patient has met most therapy goals and is pleased with progress made towards the remaining goals even though limitations persist. Patient to discharge from physical therapy this date and continue with updated home exercise program as instructed. Patient to contact physical therapist or primary care provider if questions or concerns arise. Plan of Care PT Services Indicated No
== END 2024-12-04 13:41 | disposition home or self-care (01) ==
LOC: ANHGOSHPT 12:30
PROVIDERS: PCP Nurse Practitioner Family; Visit Provider Family Medicine
DX: M22.2X2 Patellofemoral disorders, left knee (principal); M76.892 Other specified enthesopathies of left lower limb, excluding foot; R26.9 Unspecified abnormalities of gait and mobility
CPT/HCPCS: 97014; 97016; 97110; 97112; 97161; 97530; G0283

== ENCOUNTER 2025-03-03 10:05 | Outpatient (CLI) | payer OTHER, SELFPAY ==
--- OUTSIDE RECORDS SUMMARY | 2024-01-14 05:00 | XMS_ITS ---
Author Organization [facility] Address [address] [address] Care Team Providers Care Optical Lab Technician Name Role Phone Dionicio Amin Primary Care Provider UnavailCleveland Tinajero DPM Unavailable [phone] ALLERGIES No Known Allergies SOCIAL HISTORY Tobacco Use: Social History Observation Description Date Details (start date - stop date) Former Smoker 05/21/1994 - 05/21/2019 Sex Assigned At : Social History Observation Description Sex Assigned At Unknown Tobacco Use: Question Answer Notes Patient is a: former smoker When did you start smoking? 05/21/1994 When did you stop smoking? 05/21/2019 Alcohol screening: Question Answer Notes Did you have a drink containing alcohol in the p ast year? 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 I think we need an MRI for further investigation as I think this is more than likely soft tissue related or even could be neurological. Advised patient if the MRI is normal this would likely mean that is more of a neurological problem and we would need a nerve conduction test to evaluate. She has already had numerous workups and previous evaluations in the past without any answers. 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 I think we need an MRI for further investigation as I think this is more than likely soft tissue related or even could be neurological. Advised patient if the MRI is normal this would likely mean that is more of a neurological problem and we would need a nerve conduction test to evaluate. She has already had numerous workups and previous evaluations in the past without any answers. MRI ordered of the left foot and ankle without contrast Progress Notes * Examination Category Sub-Category Detail Notes General Examination GENERAL APPEARANCE: LEFT low er extremity Vascular: Dorsalis pedis and posterior tibial pulses are palpable 2 out of 4. Capillary refill time is less than 3 seconds to all digits of the left lower extremity. Skin temp is warm to warm and a proximal to distal fashion. Dorsal pedal hair growth present. Absent dependent rubor. No edema. Neurological: Epricritic sensation grossly intact to left foot. Proprioception intact at first metatarsal phalangeal joint. Dermatological: Toenails 1 through 5 are within normal limits. Webspaces 1 through 4 are clean, dry and intact. No rash noted. Skin is supple and well hydrated. No open wounds or ulcerations noted. Musculoskeletal: Muscle strength is 5 out of 5 for all groups of the lower extremity. No pain with medial to lateral compression of the calf muscle. Ankle joint and subtalar joint range of motion are full without pain or crepitus. Positive pain palpation along the lateral left ankle and primarily pain with palpation on the dorsal lateral left foot along the sinus tarsi. Negative Tinel's sign. Negative pain with palpation at the Lisfranc ligament complex. No pain along the Achilles tendon. No obvious pedal abnormalities or deformities noted. History and Physical Notes * HPI (History of Present Illness) Category Sub-Category Detail Notes Depression Screening PHQ-2 (2015 Edition) Little interest or pleasure in doing things?: Not at all Feeling down, depressed, or hopeless?: N ot at all Total Score: 0
--- OUTSIDE RECORDS SUMMARY | 2024-01-24 05:58 | XMS_ITS ---
Author Organization [facility] Address [address] [facility] [address], [place] [address] Care Team Providers Care Stone Sawyer Name Role Phone Dionicio Amin Primary Care Provider UnavailCleveland Tinajero DPM [phone] REASON FOR VISIT MRI Encounters Encounter Location Date Provider Diagnosis [facility] [address] [facility] [address], [place] [address] 01/24/2024 [place] Dumont DPM PLAN OF TREATMENT No Information
--- OUTSIDE RECORDS SUMMARY | 2024-02-01 05:12 | XMS_ITS ---
Author Organization [facility] Address [address] [facility] [address], [place] [address] Care Team Providers Care Quarantine Inspector Name Role Phone Dionicio Amin Primary Care Provider UnavailCleveland Tinajero DPM [phone] REASON FOR VISIT MRI Auth Encounters Encounter Location Date Provider Diagnosis [facility] [address] [facility] [address] [place] [address] 02/01/2024 [place] Dumont DPM PLAN OF TREATMENT No Information
--- OUTSIDE RECORDS SUMMARY | 2024-02-14 10:22 | XMS_ITS ---
Author Organization [facility] Address [address] [facility] [address], [place] [address] Care Team Providers Care Screen Handler Name Role Phone Dionicio Amin Primary Care Provider UnavailCleveland Tinajero DPM [phone] REASON FOR VISIT MRI RESULTS Encounters Encounter Location Date Provider Diagnosis [facility] [address] [facility] [address] [place] [address] 02/14/2024 [place] Dumont DPM PLAN OF TREATMENT No Information
--- OUTSIDE RECORDS SUMMARY | 2024-02-26 06:20 | XMS_ITS ---
Author Organization [facility] Address [address] [facility] [address], [place] [address] Care Team Providers Care Supervisor Electronics Processing Name Role Phone Dionicio Amin Primary Care Provider UnavailCleveland Tinajero DPM [phone] REASON FOR VISIT MRI LEFT ANKLE Encounters Encounter Location Date Provider Diagnosis [facility] [address] [facility] [address], [place] [address] 02/26/2024 [place] Dumont DPM PLAN OF TREATMENT No Information
--- NOTE | ~2025-03-03 | MMUS_ITS ---
EXAMINATION: MM diagnostic masha BI w marleny, US breast RT limited HISTORY: Right breast lump. Bilateral nipple itchiness TECHNIQUE: Additional images of both breasts]] were performed using full field digital mammography. 3-D tomosynthesis were also obtained and synthetic 2-D images were generated. CAD analysis was submitted and interpreted. High resolution [right breast ultrasound was performed.] ] COMPARISON: None available BREAST PARENCHYMAL COMPOSITION: There are scattered areas of fibroglandular density. FINDINGS: MAMMOGRAPHIC FINDINGS: No suspicious masses, calcifications or areas of architectural distortion. ULTRASOUND: [No sonographic abnormality in the area of palpable concern in the right breast at the 4:00 position 10 cm from the nipple. ]] IMPRESSION/RECOMMENDATION: 1. Benign findings in both breasts. Annual screening mammogram recommended. BI-RADS2: Benign Reviewed, dictated and finalized at location Q. IMPRESSION/RECOMMENDATION: 1. Benign findings in both breasts. Annual screening mammogram recommended. BI-RADS2: Benign IMPRESSION/RECOMMENDATION: 1. Benign findings in both breasts. Annual screening mammogram recommended. BI-RADS2: Benign
--- OUTSIDE RECORDS SUMMARY | 2025-03-03 11:36 | XMS_ITS | Clinical Summary ---
Author Organization [facility] Address [address] [place] [address] Care Team Providers Care Reduction Furnace Operator Helper Name Role Phone Destiny Iniguez Korin FORESTRY ADVISER Primary Care Provider + Allergies No known active allergies Medications doxycycline monohydrate (MONODOX) 50 mg capsule doxycycline monohydrate 50 mg capsule Active buPROPion SR (ZYBAN) 150 mg 12 hr tablet Take 150 mg by mouth 2 (two) times a day Active Active Problems Problem Noted Date Diagnosed Date Foot pain, left 08/21/2022 Assessment & Plan (08/21/2022 3:34 PM CDT): Impression: Patient reports constant left foot pain. She underwent lower extremity arterial Doppler which revealed triphasic waveforms. Plan: Recommend patient to follow-up with primary care provider or with her orthopedic provider for further evaluation. PVD (peripheral vascular disease) 08/03/2022 Assessment & Plan (08/21/2022 3:35 PM CDT): Impression: Patient denies any symptoms suggestive of claudication, ischemic rest pain or ulcerations to her lower extremities. She complains of constant pain to her left foot, as well as pain with positional changes, prolong sitting and lying. She underwent a lower extremity arterial Doppler which revealed normal ABIs with triphasic waveforms. Plan: No surgical interventions are needed at this time. Patient's symptoms likely neurogenic in nature. Recommend patient to follow up with PCP for further evaluation. Assessment & Plan (08/03/2022 4:38 PM CDT): Left foot pain could be musculoskeletal as she has a history of left foot injury however will rule out any underlying PVD with lower extremity Doppler. Strongly recommended smoking cessation. Mastalgia 12/21/2020 Increased risk of breast cancer 02/15/2020 Breast signs and symptoms 02/15/2020 Encounter to discuss treatment options 0 Breast mass 12/22/2019 Surgical History Surgery Date Site/Laterality Comments TUBAL LIGATION KNEE ARTHROSCOPY Medical History Medical History Date Comments Generalized headaches Depression Family History Medical History Relation Name Comments Lung cancer Maternal Grandfather Cancer Maternal Grandmother Breast cancer Mother Brain cancer Mother's Brother Melanoma Mother's Brother Colon cancer Other Mat Uncle Liver cancer Other Mat Uncle Relation Name Status Comments Maternal Grandfather Maternal Grandmother Mother (Age 41) Mother's Brother Other Mat Uncle Social History Tobacco Use Types Packs/Day Years Used Date Smoking Tobacco: Former Cigarettes 0.5 25 Alcohol Use Standard Drinks/Week Comments Never 0 (1 standard drink = 0.6 oz pur e alcohol) AUDIT-C Answer Date Recorded Q1: How often do you have a drink containing alc ohol? Monthly or less 12/17/2020 Average Number of Drinks Not on file 021 Frequency of Binge Drinking Not on file 11/20 Personal Safety Answer Date Recorded Getting School Help Needed Not on file 05/14 Comments Unknown Sex and Gender Information Value Date Recorded Sex Assigned at Not on file Legal Sex Female 3:42 PM CDT Gender Identity Not on file Sexual Orientation Not on file Obstetrics History Last Filed Vital Signs Vital Sign Reading Time Taken Comments Blood Pressure - - Pulse - - Temperature - - Respiratory Rate - - Oxygen Saturation - - Inhaled Oxygen Concentration - - Weight 88.5 kg (195 lb) 08/21/2022 2:50 PM CDT Height 170.2 cm (5' 7) 08/21/2022 2:50 PM CDT Body Mass Index 30.54 08/21/2022 2:50 PM CDT Plan of Treatment Health Maintenance Due Date Last Done Comments Breast Cancer Screening-Mammogram 1976 Cervical Cancer Screening 1976 Colon Cancer Screening-Colonoscopy 1976 Depression Screening 1976 Hepatitis C Screening 1976 DTaP/Tdap/Td Vaccine (1 - Tdap) 01/30/1987 Hepatitis B Screening 01/30/1994 Regular Well Visit/Exam 18-64 01/30/1994 Influenza Vaccine (#1) 2025 Pneumococcal vaccine <65 Aged Out No longer eligible based on patient's age to complete this topic Insurance [facility] Care Teams Reduction Furnace Operator Helper Relationship Specialty Start Date End Date Destiny Iniguez NP PCP - General Nurse Practitioner 11/25/19
--- OUTSIDE RECORDS SUMMARY | 2025-03-03 11:37 | XMS_ITS | Patient Health Record ---
Author Organization [facility] Address [address] [place] [address] Care Team Providers Care First Mate Name Role Phone Dionicio Amin Primary Care Provider Ney Dumont DPFelice, [place] Unavailable [phone] ALLERGIES No Known Allergies REASON FOR REFERRAL No Information SOCIAL HISTORY Tobacco Use: Social History Observation [...] ast year? No Points 0 Interpretation Negative PLAN OF TREATMENT Pending Test Test Name Order Date MRI : Ankle, left 02/26/2024 MRI : Foot, left 02/06/2024 MRI : ankle and foot 01/24/2024 Insurance Providers Payer Name Payer Address Payer Phone Subscriber Number Group Number Insured Name Patient Relationship to Insured Coverage Start Date Coverage End Date [facility] [address] [address] [place] [address] [id number] Nyla Hay Self - patient is the insured
== END 2025-03-03 10:06 | disposition home or self-care (01) ==
PROVIDERS: PCP Nurse Practitioner Family; Visit Provider Nurse Practitioner Family
DX: N63.41 Unspecified lump in right breast, subareolar (principal)
CPT/HCPCS: 76642; 77062; 77066; G0279